=== PATIENT | female | born 1950 | race Caucasian/White ===

== ENCOUNTER 2019-01-19 22:47 | Inpatient (IN) | payer MEDICARE ==
[2019-01-19] MEDS ORDERED: Magnesium 2 GM/50 ML BAG (IN WATER) ONE (23:41)
[2019-01-20] MEDS ORDERED: Ondansetron PF 4 MG/2 ML Vial IVP PRN (01:26)
[2019-01-20] MEDS ORDERED: Ondansetron ODT 4 MG TAB PO PRN (01:26)
--- NOTE | 2019-01-20 01:49 | HP ---
PRIMARY CARE PHYSICIAN: None. The patient recently relocated to [place], [place]. CHIEF COMPLAINT: Shortness of breath and wheezing of 1-week duration. HISTORY OF PRESENT ILLNESS: The patient is a 68-year-old female with COPD, presented to the emergency room with above complaints. Over the last 1 week, the patient developed gradual worsening shortness of breath along with significant wheezing. She also had cough that was productive of thick whitish phlegm. She was short of breath on minimal exertion. She tried using Symbicort and albuterol inhaler with minimal relief. She denies any chest pain, palpitations, lightheadedness, dizziness, or syncope. Her O2 saturation at home was 80% on room air. The patient has home oxygen from her previous primary care physician, however, she does not use it. In the emergency room, initial vital signs showed temperature 98.9, respiration of 32, pulse rate of 105, blood pressure of 106/83, with O2 saturation of 81% on room air. She was started on O2 supplementation. She received azithromycin, Rocephin, DuoNeb, and IV steroids in the emergency room. Chest x-ray showed left lower lobe infiltrate. PAST MEDICAL HISTORY: 1. COPD. 2. Schizophrenia. 3. Anxiety and depression. 4. Morbid obesity. 5. Hypothyroidism and chronic insomnia. PAST SURGICAL HISTORY: 1. Left axillary staphylococcal abscess, status post excision by Dr. Morirson. 2. Cholecystectomy. 3. Left breast biopsy. 4. section x2. 5. Hysterectomy. 6. Cystoscopy. ALLERGIES: NO KNOWN DRUG ALLERGIES. CURRENT HOME MEDICATIONS: The patient does not have accurate list of medications. She is able to name some of them, which includes 1. Abilify. 2. Cymbalta. 3. Levothyroxine. 4. Metoprolol. 5. BuSpar. 6. Trazodone. SOCIAL HISTORY: The patient smokes up to half pack a day for last 30 years. She denies any drug use. Drinks alcohol socially. She makes her own decision with the help of her family. She is full code. FAMILY HISTORY: Negative for premature coronary artery disease. REVIEW OF SYSTEMS: All other review of systems was reviewed and were found negative. PHYSICAL EXAMINATION: VITAL SIGNS: As discussed above. She is currently on 3 L nasal cannula. GENERAL: A 68-year-old female, in mild respiratory distress at rest. HEENT: Head, atraumatic and normocephalic. Sclerae anicteric. Moist mucous membranes. No oral lesion. NECK: Supple. No JVD appreciated. No carotid bruit. LUNGS: Showed accessory muscle use. There is diffuse wheezing bilaterally. There was scattered rhonchi. There were rales at the left base. HEART: S1 and S2 present. Regular rate and rhythm. No rubs or gallops appreciated. No significant murmurs. ABDOMEN: Soft. Bowel sounds present. There is some erythema around the umbilicus without significant drainage. No rebound or guarding. EXTREMITIES: No edema or calf tenderness. NEUROLOGIC: Grossly nonfocal. Moves all 4 extremities. Power was 5/5 in all extremities. PSYCHIATRIC: Alert, awake, and oriented x3. Normal affect. SKIN: Warm and dry. LYMPH NODES: No palpable lymph nodes in the neck. PERIPHERAL VASCULAR: Radial pulses palpable bilaterally. MUSCULOSKELETAL: No joint swelling tenderness. LABORATORY FINDINGS: CBC showed WBC 5.5, hemoglobin 15.7, hematocrit 51.4, and platelet count of 167. Chemistry showed sodium 146, potassium 3.5, chloride 105, bicarb 31, BUN 14, and creatinine 0.81. Lactic acid 0.9. LFTs in normal range. BNP 32.8. Troponin negative. IMAGING STUDIES: Chest x-ray by my review showed possible left lower lobe infiltrate. Telemetry monitoring by my review showed sinus rhythm. EKG by my review showed sinus rhythm. IMPRESSION: 1. Acute hypoxic respiratory failure secondary to chronic obstructive pulmonary disease exacerbation with left lower lobe pneumonia, suspected pneumococcal. 2. History of chronic respiratory failure, on home oxygen. However, the patient has not been using her oxygen. 3. Hypothyroidism. 4. Morbid obesity. 5. Anxiety. 6. Depression, mild, stable. 7. Schizophrenia. 8. Ongoing tobacco abuse. PLAN: The patient will be monitored on the medical floor. She will require 2 to 3 days for stabilization. We will continue IV steroids with antibiotics and nebulizer treatment. We will consult Dr. Ornelas in a.m. Continuous pulse oximetry. Continue Symbicort. We will confirm home medications. The patient was extensively counseled to quit smoking. Nebulizer treatment every 4 hours. Resume levothyroxine. Plan of care was discussed with the patient in detail. She stated understanding. Job ID: [id number]
[2019-01-20 02:14] VITALS: BMI 45.3
[2019-01-20] MEDS: methylPREDNISolone Sod Succ 40 MG VIAL IVP SCH ×4 (02:42→19:34)
[2019-01-20] MEDS: Levothyroxine Sodium 100 MCG TAB PO SCH (05:35)
[2019-01-20 07:19] LABS: #Lymphocytes 0.7 thou/uL (1.20-3.40); #Monocytes 0.1 thou/uL (0.11-0.59); #Neutrophils 4.9 thou/uL (1.40-6.50); %Eosinophils 0.4 % (0.0-10.0); %Lymphocytes 11.9 % (21.0-51.0); %Monocytes 0.9 % (0.0-10.0); %Neutrophils 86.9 % (42.0-75.0); Hemoglobin 14.6 g/dL (12.0-16.0); Mean Corpuscular HGB CONC 31.3 g/dL (32.0-36.0); Mean Corpuscular Hemoglobin 31.1 pg (27.0-31.0); Mean Corpuscular Volume 99.2 fL (78.0-98.0); Mean Platelet Volume 7.5 fL (7.4-10.4); Platelet Count 148 thou/uL (130-400); Red Blood Cell (RBC) Count 4.71 mill/uL (4.20-5.40); White Blood Cell (WBC) Count 5.6 thou/uL (4.8-10.8)
[2019-01-20] MEDS: Mometasone/Formoterol 120 PUFF INHALER INH SCH ×2 (07:30→19:20)
[2019-01-20 07:40] LABS: Anion Gap 13 mmol/L (10-20); BUN (Urea Nitrogen) 11 mg/dL (9.8-20.1); Calc. Creatinine Clearance 130 mL/min (70-130); Calcium 8.9 mg/dL (7.8-10.44); Carbon Dioxide 27 mmol/L (23-31); Chloride 105 mmol/L (98-107); Estimated GFR-MDRD 81; Glucose 177 mg/dL (80-115); Potassium 3.8 mmol/L (3.5-5.1); Sodium 141 mmol/L (136-145)
[2019-01-20] MEDS: Famotidine 20 MG TAB PO SCH ×2 (08:02→19:34)
[2019-01-20] MEDS: Saccharomyces boulardii 250 MG CAP PO SCH (08:02)
[2019-01-20] MEDS: cefTRIAXone\\ROCEPHIN 1 GM in Sodium Chloride 0.9% 100 ML IVPB SCH (08:02)
[2019-01-20] MEDS: Azithromycin 500 MG in Sodium Chloride 0.9% 250 ML 250 ML IVPB SCH (08:03)
[2019-01-20] MEDS: Enoxaparin Sodium 40 MG/0.4 ML SYRINGE SC SCH (08:03)
[2019-01-20] MEDS ORDERED: Prevnar 13-Val Conj/PF 0.5 ML SYRINGE IM ONE (09:00)
[2019-01-20] MEDS ORDERED: Nicotine 21 MG PATCH TD SCH (12:00)
[2019-01-20] MEDS: Acetaminophen 325 MG TAB PO PRN ×2 (12:13→18:18)
--- NOTE | 2019-01-20 16:07 | CON ---
DATE OF CONSULTATION: CONSULT PHYSICIAN: Hospitalist Team. REASON FOR CONSULTATION: COPD exacerbation. HISTORY OF PRESENT ILLNESS: Ms. Littlejohn is a 68-year-old female with rather severe COPD by history. She came in with 1-week history of increasing shortness of breath and wheezing. She was found to be severely hypoxemic at home yesterday and a friend insisted that she go to the ER. She smokes at least a pack per day. She has been prescribed home oxygen in the past, but does not wear it. She also does not take any of her pulmonary medications at home. PAST MEDICAL HISTORY: 1. Severe chronic obstructive pulmonary disease. 2. Schizophrenia. 3. Anxiety. 4. Depression. 5. Obesity. 6. Insomnia. 7. Hypothyroidism. PAST SURGICAL HISTORY: 1. Left axillary Staphylococcal abscess excision. 2. Cholecystectomy. 3. Breast biopsy. 4. section x2. 5. Hysterectomy. 6. Cystoscopy. ALLERGIES: NONE. MEDICATIONS: Prior to admission; 1. Abilify. 2. Cymbalta. 3. Levothyroxine. 4. Metoprolol. 5. BuSpar. 6. Trazodone. 7. She also has some albuterol at home. SOCIAL HISTORY: Smokes one pack per day, has done so for at least 30 years. Does not use any illicit drugs. She is not limited by activities of daily living at home. FAMILY MEDICAL HISTORY: Unremarkable for lung disease. REVIEW OF SYSTEMS: A 12-point review of systems is otherwise negative. PHYSICAL EXAMINATION: VITAL SIGNS: Temperature 98.0, pulse 89, respirations 18, O2 saturation 95% on 3 L, and blood pressure 103/59. The patient is 5 foot 1 inch and weighs 240 pounds. GENERAL: She appears to be in no distress. HEENT: Pupils react. Sclerae anicteric. Oropharynx clear. NECK: No adenopathy or JVD. LUNGS: She has diffuse mild wheezing bilaterally. CARDIAC: S1 and S2. Regular without murmur. ABDOMEN: Soft, nontender, and nondistended. EXTREMITIES: No clubbing, cyanosis, or edema. CARDIAC: S1 and S2. Regular. NEUROLOGIC: Grossly intact throughout. LABORATORY DATA: White blood cell count 5.6, hematocrit 46.7, and platelet count 148. Sodium 141, potassium 3.8, chloride 105, CO2 of 27, BUN 11, creatinine 0.7, and glucose 177. Her x-ray shows a left-sided retrocardiac infiltrate. ASSESSMENT: 1. Chronic obstructive pulmonary disease with exacerbation. 2. Left lower lobe pneumonia. 3. Tobacco abuse. 4. Noncompliance. 5. Morbid obesity. PLAN: I reviewed the orders. Agree with the IV methylprednisolone, the ceftriaxone, and a Zithromax, and schedule nebulization treatments. The patient has been told not to smoke, but I doubt she will comply. I will set her up for a nicotine patch. The above encompassed 70 minutes time, of that time, greater than 50% was spent with the patient and/or the patient's unit in the hospital. Job ID: [id number]
[2019-01-21] MEDS: methylPREDNISolone Sod Succ 40 MG VIAL IVP SCH ×4 (02:05→20:20)
[2019-01-21] MEDS: Levothyroxine Sodium 100 MCG TAB PO SCH (06:10)
[2019-01-21 06:35] LABS: #Eosinphils 0.1 thou/uL (0.0-0.7); #Lymphocytes 0.6 thou/uL (1.20-3.40); #Monocytes 0.2 thou/uL (0.11-0.59); #Neutrophils 8.7 thou/uL (1.40-6.50); %Eosinophils 0.7 % (0.0-10.0); %Lymphocytes 6.4 % (21.0-51.0); %Monocytes 1.7 % (0.0-10.0); %Neutrophils 91.2 % (42.0-75.0); Hemoglobin 14.3 g/dL (12.0-16.0); Mean Corpuscular HGB CONC 31.8 g/dL (32.0-36.0); Mean Corpuscular Hemoglobin 31.8 pg (27.0-31.0); Mean Platelet Volume 8.3 fL (7.4-10.4); Platelet Count 154 thou/uL (130-400); RBC Distribution Width 14.4 % (11.5-14.5); White Blood Cell (WBC) Count 9.6 thou/uL (4.8-10.8)
[2019-01-21] MEDS: Mometasone/Formoterol 120 PUFF INHALER INH SCH ×2 (06:45→18:40)
[2019-01-21 06:54] LABS: Anion Gap 14 mmol/L (10-20); BUN (Urea Nitrogen) 14 mg/dL (9.8-20.1); Calc. Creatinine Clearance 136 mL/min (70-130); Calcium 9.5 mg/dL (7.8-10.44); Carbon Dioxide 31 mmol/L (23-31); Chloride 104 mmol/L (98-107); Estimated GFR-MDRD 85; Glucose 162 mg/dL (80-115); Potassium 4.1 mmol/L (3.5-5.1); Sodium 145 mmol/L (136-145)
[2019-01-21] MEDS: Saccharomyces boulardii 250 MG CAP PO SCH (07:55)
[2019-01-21] MEDS: cefTRIAXone\\ROCEPHIN 1 GM in Sodium Chloride 0.9% 100 ML IVPB SCH (07:55)
[2019-01-21] MEDS: Enoxaparin Sodium 40 MG/0.4 ML SYRINGE SC SCH (07:55)
[2019-01-21] MEDS: Famotidine 20 MG TAB PO SCH ×2 (07:55→20:20)
[2019-01-21] MEDS: Acetaminophen 325 MG TAB PO PRN (07:56)
[2019-01-21] MEDS: Nicotine 21 MG PATCH TD SCH (07:56)
--- NOTE | 2019-01-21 09:18 | PRG ---
DATE OF SERVICE: 01/21/2019 SUBJECTIVE: The patient is about the same. She had no acute complaints, except she wants her antidepressants restarted. OBJECTIVE: VITAL SIGNS: Temperature 98.4, pulse 100, respirations 20, saturations 91% on 3 L, blood pressure 134/85. HEENT: Unremarkable. NECK: No adenopathy or JVD. LUNGS: Diffuse mild wheezing. CARDIAC: S1 and S2. Regular. ABDOMEN: Soft. EXTREMITIES: No edema. LABORATORY DATA: White blood cell count 9.6, hematocrit 45.1, and platelet count 154. Sodium 145, potassium 4.1, chloride 104, CO2 of 31, BUN 14, creatinine 0.7, glucose 162. ASSESSMENT: Chronic obstructive pulmonary disease with exacerbation. PLAN: Continue antibiotics, breathing treatments, and steroids. I think it will take several more days for her to improve. Job ID: [id number]
--- NOTE | 2019-01-21 12:44 | PDOC.PN ---
- Subjective Encounter Start Date: 01/21/19 Encounter Start Time: 07:40 Pt seen for followup re: acute hypoxic respiratory failure. Feels slightly better. - Objective Resuscitation Status - Order Detail: 01/20/19 01:26 Resuscitation Status Routine Resuscitation Status: FULL: Full Resuscitation MAR Reviewed: Yes Vital Signs & Weight: Vital Signs (12 hours) Temp Pulse Resp BP Pulse Ox 01/21/19 10:01 85 20 01/21/19 08:01 98.4 F 100 20 134/85 91 L 01/21/19 06:43 88 20 94 L 01/21/19 02:33 91 16 94 L Weight Weight 240 lb I&O: 01/20/19 01/21/19 01/22/19 06:59 06:59 06:59 Intake Total 2330 Balance 2330 Result Diagrams: 01/21/19 06:08 01/21/19 06:08 Additional Labs: Labs reviewed by me Phys Exam - Physical Examination Morbid obesity HEENT: moist MMs, sclera anicteric, oral pharynx no lesions, 2+ tonsils Neck: no nodes, no JVD, supple, full ROM Respiratory: wheezing present Cardiovascular: RRR, no rub S1, S2 Neurological: moves all 4 limbs Psychiatric: normal affect Dx/Plan (1) Acute on chronic respiratory failure with hypoxia Code(s): J96.21 - ACUTE AND CHRONIC RESPIRATORY FAILURE WITH HYPOXIA Status: Acute Comment: Improving with oxygen, steroids and bronchodilators (2) COPD exacerbation Code(s): J44.1 - CHRONIC OBSTRUCTIVE PULMONARY DISEASE W (ACUTE) EXACERBATION Status: Acute Comment: Improving, continue steroids, oxygen and bronchodilators (3) Pneumonia Code(s): J18.9 - PNEUMONIA, UNSPECIFIED ORGANISM Status: Acute Comment: continue ceftriaxone and azithromycin (4) Depression Code(s): F32.9 - MAJOR DEPRESSIVE DISORDER, SINGLE EPISODE, UNSPECIFIED Status : Chronic Comment: moderate, stable - Plan * . Review of Systems - Review of Systems Constitutional: negative: fever, chills, sweats, weakness, malaise Respiratory: Cough, Dry, Wheezing. negative: Shortness of Breath, Hemoptysis, SOB with Excertion, Pleuritic Pain, Sputum Cardiovascular: negative: chest pain, palpitations, orthopnea, paroxysmal nocturnal dyspnea, edema, light headedness Gastrointestinal: negative: Nausea, Vomiting, Abdominal Pain, Diarrhea, Constipation, Melena, Hematochezia Genitourinary: negative: Dysuria, Frequency, Incontinence, Hematuria, Retention - Medications/Allergies Allergies/Adverse Reactions: Allergies Allergy/AdvReac Type Severity Reaction Status Date / Time aspirin Allergy Verified 01/20/19 08:02 Medications: Current Medications Acetaminophen (Tylenol) 650 mg PO Q4H PRN PRN Reason: Headache/Fever/Mild Pain (1-3) Last Admin: 01/21/19 07:56 Dose: 650 mg Albuterol/Ipratropium (Duoneb) 3 ml NEB [id number] [facility] Last Admin: 01/21/19 10:01 Dose: 3 ml Albuterol/Ipratropium (Duoneb) 3 ml NEB [id number] PRN PRN Reason: SOB &/or Wheezing Buspirone HCl (Buspar) 15 mg PO BID [facility] Duloxetine HCl (Cymbalta) 100 mg PO QPM [facility] Enoxaparin Sodium (Lovenox) 40 mg SC 0900 [facility] Last Admin: 01/21/19 07:55 Dose: 40 mg Famotidine (Pepcid) 20 mg PO BID [facility] Last Admin: 01/21/19 07:55 Dose: 20 mg Azithromycin 500 mg/ Sodium (Chloride) 250 mls @ 250 mls/hr IVPB DAILY [facility] Last Admin: 01/20/19 08:03 Dose: 250 mls Ceftriaxone Sodium 1 gm/ (Sodium Chloride) 100 mls @ 200 mls/hr IVPB 0800 [facility] Last Admin: 01/21/19 07:55 Dose: 100 mls Levothyroxine Sodium (Synthroid) 100 mcg PO 0600 [facility] Last Admin: 01/21/19 06:10 Dose: 100 mcg Methylprednisolone Sodium Succinate (Solu-Medrol) 40 mg IVP 0200,0800,1400, 2000 [facility] Last Admin: 01/21/19 08:02 Dose: 40 mg Mometasone Furoate/Formoterol Fumar (Dulera 200 Mcg/5 Mcg Inhaler) 2 puff INH BID-RT [facility] Last Admin: 01/21/19 06:45 Dose: 2 puff Montelukast Sodium (Singulair) 10 mg PO DAILY [facility] Nicotine (Nicoderm Patch) 21 mg TD DAILY [facility] Last Admin: 01/21/19 07:56 Dose: 21 mg Non-Formulary Medication (Aripiprazole [Aripiprazole]) 20 mg PO DAILY [facility] Ondansetron HCl (Zofran Odt) 4 mg PO Q6H PRN PRN Reason: Nausea/Vomiting Ondansetron HCl (Zofran) 4 mg IVP Q6H PRN PRN Reason: Nausea/Vomiting Ropinirole HCl (Requip) 0.25 mg PO TID [facility] Saccharomyces Boulardii (Florastor) 250 mg PO DAILY [facility] Last Admin: 01/21/19 07:55 Dose: 250 mg Sodium Chloride (Flush - Normal Saline) 10 ml IVF PRN PRN PRN Reason: Saline Flush Trazodone HCl (Desyrel) 100 mg PO QPM [facility]
[2019-01-21] MEDS: Azithromycin 500 MG in Sodium Chloride 0.9% 250 ML 250 ML IVPB SCH (13:24)
[2019-01-21] MEDS: traMADol HCl 50 MG TAB PO PRN ×2 (14:43→20:18)
[2019-01-21] MEDS: Benzonatate 100 MG CAP PO SCH ×2 (14:44→20:20)
[2019-01-21] MEDS: rOPINIRole HCl 0.25 MG TAB PO SCH ×2 (14:44→20:20)
[2019-01-21] MEDS: busPIRone HCl 10 MG TAB PO SCH (20:20)
[2019-01-21] MEDS: traZODone HCl 50 MG TAB PO SCH (20:21)
[2019-01-22] MEDS: methylPREDNISolone Sod Succ 40 MG VIAL IVP SCH ×4 (01:23→20:47)
[2019-01-22] MEDS: Levothyroxine Sodium 100 MCG TAB PO SCH (04:51)
[2019-01-22] MEDS: Mometasone/Formoterol 120 PUFF INHALER INH SCH ×2 (06:44→18:26)
[2019-01-22] MEDS: Acetaminophen 325 MG TAB PO PRN ×2 (07:43→15:23)
[2019-01-22] MEDS: rOPINIRole HCl 0.25 MG TAB PO SCH ×3 (07:44→20:47)
[2019-01-22] MEDS: busPIRone HCl 10 MG TAB PO SCH ×2 (07:44→20:47)
[2019-01-22] MEDS: Montelukast Sodium 10 mg Tablet PO SCH (07:44)
[2019-01-22] MEDS: Saccharomyces boulardii 250 MG CAP PO SCH (07:44)
[2019-01-22] MEDS: Azithromycin 250 MG TAB PO SCH (07:44)
[2019-01-22] MEDS: Benzonatate 100 MG CAP PO SCH ×3 (07:44→20:47)
[2019-01-22] MEDS: Aripiprazole 10 MG TAB PO SCH (07:44)
[2019-01-22] MEDS: cefTRIAXone\\ROCEPHIN 1 GM in Sodium Chloride 0.9% 100 ML IVPB SCH (07:45)
[2019-01-22] MEDS: Enoxaparin Sodium 40 MG/0.4 ML SYRINGE SC SCH (07:45)
[2019-01-22] MEDS: Famotidine 20 MG TAB PO SCH ×2 (07:45→20:47)
[2019-01-22] MEDS: Nicotine 21 MG PATCH TD SCH (07:45)
--- NOTE | 2019-01-22 09:40 | PRG ---
DATE OF SERVICE: 01/22/2019 SUBJECTIVE: She feels a little better, but not completely over her COPD exacerbation. OBJECTIVE: VITAL SIGNS: Temperature 98.3, pulse 98, respirations 20, O2 sat 96%, and blood pressure 127/84. HEAD AND NECK: Exams are unremarkable. LUNGS: Diffuse mild bilateral wheezing. CARDIAC: S1 and S2. Regular. ABDOMEN: Soft. EXTREMITIES: Not edematous. LABORATORY DATA: No labs were done today. ASSESSMENT: Chronic obstructive pulmonary disease with exacerbation. PLAN: Continue with the antibiotics, IV steroids, and aggressive nebulization treatments. I have instructed her to get up out of bed and walk around. Job ID: [id number]
--- NOTE | 2019-01-22 17:17 | PDOC.PN ---
- Subjective Encounter Start Date: 01/22/19 Encounter Start Time: 09:00 Pt seen for followup re: acute on chronic hypoxic respiratory failure. Feels slightly better. - Objective Resuscitation Status - Order Detail: 01/20/19 01:26 Resuscitation Status Routine Resuscitation Status: FULL: Full Resuscitation Vital Signs & Weight: Vital Signs (12 hours) Temp Pulse Resp BP BP Pulse Ox 01/22/19 12:14 98.3 F 89 22 H 125/78 93 L 01/22/19 10:28 98 16 94 L 01/22/19 08:00 96 01/22/19 07:56 98 20 127/84 96 01/22/19 07:43 98.3 F 87 16 116/73 96 01/22/19 06:43 88 16 97 Weight Weight 240 lb I&O: 01/21/19 01/22/19 01/23/19 06:59 06:59 06:59 Intake Total 2330 500 Balance 2330 500 Result Diagrams: 01/21/19 06:08 01/21/19 06:08 Phys Exam - Physical Examination Morbid obesity HEENT: moist MMs Neck: supple Respiratory: wheezing present Cardiovascular: RRR Gastrointestinal: soft Neurological: moves all 4 limbs Psychiatric: normal affect Dx/Plan (1) Acute on chronic respiratory failure with hypoxia Code(s): J96.21 - ACUTE AND CHRONIC RESPIRATORY FAILURE WITH HYPOXIA Status: Acute Comment: Secondary to COPD exacerbation, improving. (2) COPD exacerbation Code(s): J44.1 - CHRONIC OBSTRUCTIVE PULMONARY DISEASE W (ACUTE) EXACERBATION Status: Acute Comment: Slowly improving, will continue steroids, oxygen and bronchodilators (3) Pneumonia Code(s): J18.9 - PNEUMONIA, UNSPECIFIED ORGANISM Status: Acute Comment: on IV ceftriaxone and azithromycin (4) Depression Code(s): F32.9 - MAJOR DEPRESSIVE DISORDER, SINGLE EPISODE, UNSPECIFIED Status : Chronic Comment: moderate, stable - Plan * . Review of Systems - Review of Systems Respiratory: Cough, SOB with Excertion, Sputum. negative: Dry, Shortness of Breath, Hemoptysis, Pleuritic Pain, Wheezing Cardiovascular: negative: chest pain, palpitations, orthopnea, paroxysmal nocturnal dyspnea, edema, light headedness - Medications/Allergies Allergies/Adverse Reactions: Allergies Allergy/AdvReac Type Severity Reaction Status Date / Time aspirin Allergy Verified 01/20/19 08:02 Medications: Current Medications Acetaminophen (Tylenol) 650 mg PO Q4H PRN PRN Reason: Headache/Fever/Mild Pain (1-3) Last Admin: 01/22/19 15:23 Dose: 650 mg Albuterol/Ipratropium (Duoneb) 3 ml NEB [id number] [facility] Last Admin: 01/22/19 13:52 Dose: 3 ml Albuterol/Ipratropium (Duoneb) 3 ml NEB [id number] PRN PRN Reason: SOB &/or Wheezing Aripiprazole (Abilify) 20 mg PO DAILY [facility] Last Admin: 01/22/19 07:44 Dose: 20 mg Azithromycin (Zithromax) 500 mg PO DAILY [facility] Last Admin: 01/22/19 07:44 Dose: 500 mg Benzonatate (Tessalon) 100 mg PO TID [facility] Last Admin: 01/22/19 14:05 Dose: 100 mg Buspirone HCl (Buspar) 15 mg PO BID [facility] Last Admin: 01/22/19 07:44 Dose: 15 mg Duloxetine HCl (Cymbalta) 100 mg PO QPM [facility] Last Admin: 01/21/19 20:23 Dose: 100 mg Enoxaparin Sodium (Lovenox) 40 mg SC 0900 [facility] Last Admin: 01/22/19 07:45 Dose: 40 mg Famotidine (Pepcid) 20 mg PO BID [facility] Last Admin: 01/22/19 07:45 Dose: 20 mg Ceftriaxone Sodium 1 gm/ (Sodium Chloride) 100 mls @ 200 mls/hr IVPB 0800 [facility] Last Admin: 01/22/19 07:45 Dose: 100 mls Levothyroxine Sodium (Synthroid) 100 mcg PO 0600 [facility] Last Admin: 01/22/19 04:51 Dose: 100 mcg Methylprednisolone Sodium Succinate (Solu-Medrol) 40 mg IVP 0200,0800,1400, 2000 [facility] Last Admin: 01/22/19 14:05 Dose: 40 mg Mometasone Furoate/Formoterol Fumar (Dulera 200 Mcg/5 Mcg Inhaler) 2 puff INH BID-RT [facility] Last Admin: 01/22/19 06:44 Dose: 2 puff Montelukast Sodium (Singulair) 10 mg PO DAILY [facility] Last Admin: 01/22/19 07:44 Dose: 10 mg Nicotine (Nicoderm Patch) 21 mg TD DAILY [facility] Last Admin: 01/22/19 07:45 Dose: 21 mg Ondansetron HCl (Zofran Odt) 4 mg PO Q6H PRN PRN Reason: Nausea/Vomiting Ondansetron HCl (Zofran) 4 mg IVP Q6H PRN PRN Reason: Nausea/Vomiting Ropinirole HCl (Requip) 0.25 mg PO TID [facility] Last Admin: 01/22/19 14:05 Dose: 0.25 mg Saccharomyces Boulardii (Florastor) 250 mg PO DAILY [facility] Last Admin: 01/22/19 07:44 Dose: 250 mg Sodium Chloride (Flush - Normal Saline) 10 ml IVF PRN PRN PRN Reason: Saline Flush Tramadol HCl (Ultram) 50 mg PO Q6H PRN PRN Reason: Pain Last Admin: 01/21/19 20:18 Dose: 50 mg Trazodone HCl (Desyrel) 100 mg PO QPM [facility] Last Admin: 01/21/19 20:21 Dose: 100 mg
[2019-01-22] MEDS: traMADol HCl 50 MG TAB PO PRN (17:23)
[2019-01-22] MEDS: traZODone HCl 50 MG TAB PO SCH (20:49)
[2019-01-23] MEDS: traMADol HCl 50 MG TAB PO PRN ×2 (00:45→17:57)
[2019-01-23] MEDS: methylPREDNISolone Sod Succ 40 MG VIAL IVP SCH ×2 (02:19→19:03)
[2019-01-23] MEDS: Levothyroxine Sodium 100 MCG TAB PO SCH (06:01)
[2019-01-23] MEDS: Mometasone/Formoterol 120 PUFF INHALER INH SCH ×2 (07:49→18:25)
[2019-01-23] MEDS: Aripiprazole 10 MG TAB PO SCH (08:53)
[2019-01-23] MEDS: Saccharomyces boulardii 250 MG CAP PO SCH (08:53)
[2019-01-23] MEDS: Benzonatate 100 MG CAP PO SCH ×3 (08:53→20:14)
[2019-01-23] MEDS: rOPINIRole HCl 0.25 MG TAB PO SCH ×3 (08:53→20:14)
[2019-01-23] MEDS: busPIRone HCl 10 MG TAB PO SCH ×2 (08:53→20:15)
[2019-01-23] MEDS: Montelukast Sodium 10 mg Tablet PO SCH (08:53)
[2019-01-23] MEDS: Azithromycin 250 MG TAB PO SCH (08:53)
[2019-01-23] MEDS: Famotidine 20 MG TAB PO SCH ×2 (08:54→20:16)
[2019-01-23] MEDS: Nicotine 21 MG PATCH TD SCH (08:55)
[2019-01-23] MEDS: cefTRIAXone\\ROCEPHIN 1 GM in Sodium Chloride 0.9% 100 ML IVPB SCH (08:55)
[2019-01-23] MEDS: Enoxaparin Sodium 40 MG/0.4 ML SYRINGE SC SCH (08:55)
[2019-01-23] MEDS: predniSONE 20 MG TAB PO SCH (08:58)
--- NOTE | 2019-01-23 09:31 | PRG ---
DATE OF SERVICE: 01/23/2019 SUBJECTIVE: She is doing better, less wheezing. She has been walking around the hospital. OBJECTIVE: VITAL SIGNS: Temperature 97.8, pulse 80, respirations 20, and O2 saturation 95% on 3 L. HEENT: Unremarkable. NECK: No JVD. LUNGS: She has diffuse mild wheezing. CARDIAC: S1 and S2. Regular. ABDOMEN: Soft. EXTREMITIES: No edema. ASSESSMENT: 1. Chronic obstructive pulmonary disease with exacerbation. 2. Chronic hypoxemic respiratory failure. PLAN: Convert over to oral steroids. Consider discharge tomorrow, if she is doing well. Job ID: [id number]
--- NOTE | 2019-01-23 14:30 | PDOC.PN ---
- Subjective Encounter Start Date: 01/23/19 Encounter Start Time: 08:20 Pt seen for acute on chronic hypoxic respiratory failure. Feels better. - Objective Resuscitation Status - Order Detail: 01/20/19 01:26 Resuscitation Status Routine Resuscitation Status: FULL: Full Resuscitation MAR Reviewed: Yes Vital Signs & Weight: Vital Signs (12 hours) Temp Pulse Resp BP BP Pulse Ox 01/23/19 13:43 78 18 95 01/23/19 10:02 74 18 95 01/23/19 08:00 94 L 01/23/19 07:55 98.5 F 91 22 H 134/82 94 L 01/23/19 07:49 75 19 95 01/23/19 07:48 75 18 95 01/23/19 04:00 97.8 F 80 20 132/83 95 01/23/19 03:44 78 18 95 Weight Weight 240 lb I&O: 01/22/19 01/23/19 01/24/19 06:59 06:59 06:59 Intake Total 500 2200 Balance 500 2200 Result Diagrams: 01/21/19 06:08 01/21/19 06:08 Additional Labs: Labs reviewed by me Phys Exam - Physical Examination Morbid obesity HEENT: moist MMs Neck: supple Respiratory: wheezing present Cardiovascular: RRR Gastrointestinal: soft Neurological: moves all 4 limbs Psychiatric: normal affect Dx/Plan (1) Acute on chronic respiratory failure with hypoxia Code(s): J96.21 - ACUTE AND CHRONIC RESPIRATORY FAILURE WITH HYPOXIA Status: Acute Comment: improving. (2) COPD exacerbation Code(s): J44.1 - CHRONIC OBSTRUCTIVE PULMONARY DISEASE W (ACUTE) EXACERBATION Status: Acute Comment: continue steroids, oxygen and bronchodilators (3) Pneumonia Code(s): J18.9 - PNEUMONIA, UNSPECIFIED ORGANISM Status: Acute Comment: on IV ceftriaxone and azithromycin (4) Depression Code(s): F32.9 - MAJOR DEPRESSIVE DISORDER, SINGLE EPISODE, UNSPECIFIED Status : Chronic Comment: moderate, stable (5) Morbid obesity Code(s): E66.01 - MORBID (SEVERE) OBESITY DUE TO EXCESS CALORIES Status: Chronic Comment: stable - Plan continue antibiotics * . Review of Systems - Review of Systems Respiratory: SOB with Excertion, Wheezing. negative: Cough, Dry, Shortness of Breath, Hemoptysis, Pleuritic Pain, Sputum Cardiovascular: negative: chest pain, palpitations, orthopnea, paroxysmal nocturnal dyspnea, edema, light headedness - Medications/Allergies Allergies/Adverse Reactions: Allergies Allergy/AdvReac Type Severity Reaction Status Date / Time aspirin Allergy Verified 01/20/19 08:02 Medications: Current Medications Acetaminophen (Tylenol) 650 mg PO Q4H PRN PRN Reason: Headache/Fever/Mild Pain (1-3) Last Admin: 01/22/19 15:23 Dose: 650 mg Albuterol/Ipratropium (Duoneb) 3 ml NEB [id number] [facility] Last Admin: 01/23/19 13:43 Dose: 3 ml Albuterol/Ipratropium (Duoneb) 3 ml NEB [id number] PRN PRN Reason: SOB &/or Wheezing Aripiprazole (Abilify) 20 mg PO DAILY [facility] Last Admin: 01/23/19 08:53 Dose: 20 mg Azithromycin (Zithromax) 500 mg PO DAILY [facility] Last Admin: 01/23/19 08:53 Dose: 500 mg Benzonatate (Tessalon) 100 mg PO TID [facility] Last Admin: 01/23/19 14:03 Dose: 100 mg Buspirone HCl (Buspar) 15 mg PO BID [facility] Last Admin: 01/23/19 08:53 Dose: 15 mg Duloxetine HCl (Cymbalta) 100 mg PO QPM [facility] Last Admin: 01/22/19 20:50 Dose: 100 mg Enoxaparin Sodium (Lovenox) 40 mg SC 0900 [facility] Last Admin: 01/23/19 08:55 Dose: 40 mg Famotidine (Pepcid) 20 mg PO BID [facility] Last Admin: 01/23/19 08:54 Dose: 20 mg Ceftriaxone Sodium 1 gm/ (Sodium Chloride) 100 mls @ 200 mls/hr IVPB 0800 [facility] Last Admin: 01/23/19 08:55 Dose: 100 mls Levothyroxine Sodium (Synthroid) 100 mcg PO 0600 [facility] Last Admin: 01/23/19 06:01 Dose: 100 mcg Mometasone Furoate/Formoterol Fumar (Dulera 200 Mcg/5 Mcg Inhaler) 2 puff INH BID-RT [facility] Last Admin: 01/23/19 07:49 Dose: 2 puff Montelukast Sodium (Singulair) 10 mg PO DAILY [facility] Last Admin: 01/23/19 08:53 Dose: 10 mg Nicotine (Nicoderm Patch) 21 mg TD DAILY [facility] Last Admin: 01/23/19 08:55 Dose: 21 mg Ondansetron HCl (Zofran Odt) 4 mg PO Q6H PRN PRN Reason: Nausea/Vomiting Ondansetron HCl (Zofran) 4 mg IVP Q6H PRN PRN Reason: Nausea/Vomiting Prednisone (Prednisone) 40 mg PO DAILY [facility] Last Admin: 01/23/19 08:58 Dose: 40 mg Ropinirole HCl (Requip) 0.25 mg PO TID [facility] Last Admin: 01/23/19 14:03 Dose: 0.25 mg Saccharomyces Boulardii (Florastor) 250 mg PO DAILY [facility] Last Admin: 01/23/19 08:53 Dose: 250 mg Sodium Chloride (Flush - Normal Saline) 10 ml IVF PRN PRN PRN Reason: Saline Flush Tramadol HCl (Ultram) 50 mg PO Q6H PRN PRN Reason: Pain Last Admin: 01/23/19 00:45 Dose: 50 mg Trazodone HCl (Desyrel) 100 mg PO QPM [facility] Last Admin: 01/22/19 20:49 Dose: 100 mg
[2019-01-23] MEDS: traZODone HCl 50 MG TAB PO SCH (20:36)
[2019-01-24] MEDS: traMADol HCl 50 MG TAB PO PRN ×3 (05:23→20:36)
[2019-01-24] MEDS: Levothyroxine Sodium 100 MCG TAB PO SCH (05:23)
[2019-01-24] MEDS: Mometasone/Formoterol 120 PUFF INHALER INH SCH ×2 (05:45→20:31)
[2019-01-24] MEDS: cefTRIAXone\\ROCEPHIN 1 GM in Sodium Chloride 0.9% 100 ML IVPB SCH (08:20)
[2019-01-24] MEDS: Benzonatate 100 MG CAP PO SCH ×3 (08:21→20:34)
[2019-01-24] MEDS: busPIRone HCl 10 MG TAB PO SCH ×2 (08:21→20:41)
[2019-01-24] MEDS: rOPINIRole HCl 0.25 MG TAB PO SCH ×3 (08:21→20:34)
[2019-01-24] MEDS: Montelukast Sodium 10 mg Tablet PO SCH (08:21)
[2019-01-24] MEDS: Saccharomyces boulardii 250 MG CAP PO SCH (08:22)
[2019-01-24] MEDS: Famotidine 20 MG TAB PO SCH ×2 (08:22→20:34)
[2019-01-24] MEDS: Aripiprazole 10 MG TAB PO SCH (08:22)
[2019-01-24] MEDS: predniSONE 20 MG TAB PO SCH (08:22)
[2019-01-24] MEDS: Azithromycin 250 MG TAB PO SCH (08:22)
[2019-01-24] MEDS: Enoxaparin Sodium 40 MG/0.4 ML SYRINGE SC SCH (08:23)
[2019-01-24] MEDS: Nicotine 21 MG PATCH TD SCH (08:23)
--- NOTE | 2019-01-24 08:54 | PRG ---
DATE OF SERVICE: 01/24/2019 SUBJECTIVE: The patient is feeling a little better, but says she does not feel quite up to going home. OBJECTIVE: VITAL SIGNS: Temperature 97.9, pulse 78, blood pressure 95/68, O2 saturation 93%. HEENT: Unremarkable. NECK: No adenopathy or JVD. LUNGS: Diffuse small wheezing. CARDIAC: S1, S2. Regular. ABDOMEN: Soft. EXTREMITIES: No edema. LABORATORY DATA: No labs were done today. ASSESSMENT: Chronic obstructive pulmonary disease with exacerbation, slowly improving. PLAN: Switch her over to oral antibiotics. Increase activity as tolerated. Hopefully, home by tomorrow. Job ID: [id number]
[2019-01-24] MEDS: Cefdinir 300 MG CAP PO SCH (09:49)
--- NOTE | 2019-01-24 12:47 | PDOC.PN ---
- Subjective Encounter Start Date: 01/24/19 Encounter Start Time: 09:25 Subjective: breathing better, is at her home dose of nasal canula O2 -: is ambulating in room - Objective Resuscitation Status - Order Detail: 01/20/19 01:26 Resuscitation Status Routine Resuscitation Status: FULL: Full Resuscitation MAR Reviewed: Yes Vital Signs & Weight: Vital Signs (12 hours) Temp Pulse Resp BP Pulse Ox 01/24/19 11:47 97.6 F 81 20 101/60 93 L 01/24/19 09:41 82 20 96 01/24/19 08:00 96 01/24/19 07:29 97.9 F 78 22 H 95/68 93 L 01/24/19 05:45 80 18 96 01/24/19 05:43 80 18 96 01/24/19 04:00 97.6 F 80 18 112/75 93 L 01/24/19 01:54 70 18 97 Weight Weight 240 lb I&O: 01/23/19 01/24/19 01/25/19 06:59 06:59 06:59 Intake Total 2200 2200 240 Balance 2200 2200 240 Result Diagrams: 01/21/19 06:08 01/21/19 06:08 Phys Exam - Physical Examination HEENT: PERRLA, moist MMs Neck: no JVD, supple Respiratory: no wheezing, no rales rhonchi+ Cardiovascular: RRR, no significant murmur Gastrointestinal: soft, non-tender, positive bowel sounds Musculoskeletal: no edema, pulses present Neurological: non-focal, moves all 4 limbs Psychiatric: normal affect, A&O x 3 Dx/Plan (1) Acute on chronic respiratory failure with hypoxia Code(s): J96.21 - ACUTE AND CHRONIC RESPIRATORY FAILURE WITH HYPOXIA Status: Acute Comment: improving. (2) COPD exacerbation Code(s): J44.1 - CHRONIC OBSTRUCTIVE PULMONARY DISEASE W (ACUTE) EXACERBATION Status: Acute Comment: continue steroids, oxygen and bronchodilators (3) Depression Code(s): F32.9 - MAJOR DEPRESSIVE DISORDER, SINGLE EPISODE, UNSPECIFIED Status : Chronic Qualifiers: Depression Type: major depressive disorder (4) Morbid obesity Code(s): E66.01 - MORBID (SEVERE) OBESITY DUE TO EXCESS CALORIES Status: Chronic Comment: stable - Plan is on omnicef, steroids, nebs, dulera and singulair -: continue buspar, abilify, requip, trazadone -: has home oxygen per patient -: she has to come down or dc some of her psychotropic meds -: to ambulate in hallway, dc plan in am * . Review of Systems - Medications/Allergies Allergies/Adverse Reactions: Allergies Allergy/AdvReac Type Severity Reaction Status Date / Time aspirin Allergy Verified 01/20/19 08:02 Medications: Current Medications Acetaminophen (Tylenol) 650 mg PO Q4H PRN PRN Reason: Headache/Fever/Mild Pain (1-3) Last Admin: 01/22/19 15:23 Dose: 650 mg Albuterol/Ipratropium (Duoneb) 3 ml NEB [id number] [facility] Last Admin: 01/24/19 09:41 Dose: 3 ml Albuterol/Ipratropium (Duoneb) 3 ml NEB [id number] PRN PRN Reason: SOB &/or Wheezing Aripiprazole (Abilify) 20 mg PO DAILY [facility] Last Admin: 01/24/19 08:22 Dose: 20 mg Azithromycin (Zithromax) 500 mg PO DAILY [facility] Last Admin: 01/24/19 08:22 Dose: 500 mg Benzonatate (Tessalon) 100 mg PO TID [facility] Last Admin: 01/24/19 08:21 Dose: 100 mg Buspirone HCl (Buspar) 15 mg PO BID [facility] Last Admin: 01/24/19 08:21 Dose: 15 mg Cefdinir (Omnicef) 600 mg PO DAILY [facility] Last Admin: 01/24/19 09:49 Dose: 600 mg Duloxetine HCl (Cymbalta) 100 mg PO QPM [facility] Last Admin: 01/23/19 20:16 Dose: 100 mg Enoxaparin Sodium (Lovenox) 40 mg SC 0900 [facility] Last Admin: 01/24/19 08:23 Dose: 40 mg Famotidine (Pepcid) 20 mg PO BID [facility] Last Admin: 01/24/19 08:22 Dose: 20 mg Levothyroxine Sodium (Synthroid) 100 mcg PO 0600 [facility] Last Admin: 01/24/19 05:23 Dose: 100 mcg Mometasone Furoate/Formoterol Fumar (Dulera 200 Mcg/5 Mcg Inhaler) 2 puff INH BID-RT [facility] Last Admin: 01/24/19 05:45 Dose: 2 puff Montelukast Sodium (Singulair) 10 mg PO DAILY [facility] Last Admin: 01/24/19 08:21 Dose: 10 mg Nicotine (Nicoderm Patch) 21 mg TD DAILY [facility] Last Admin: 01/24/19 08:23 Dose: 21 mg Ondansetron HCl (Zofran Odt) 4 mg PO Q6H PRN PRN Reason: Nausea/Vomiting Ondansetron HCl (Zofran) 4 mg IVP Q6H PRN PRN Reason: Nausea/Vomiting Prednisone (Prednisone) 40 mg PO DAILY [facility] Last Admin: 01/24/19 08:22 Dose: 40 mg Ropinirole HCl (Requip) 0.25 mg PO TID [facility] Last Admin: 01/24/19 08:21 Dose: 0.25 mg Saccharomyces Boulardii (Florastor) 250 mg PO DAILY [facility] Last Admin: 01/24/19 08:22 Dose: 250 mg Sodium Chloride (Flush - Normal Saline) 10 ml IVF PRN PRN PRN Reason: Saline Flush Tramadol HCl (Ultram) 50 mg PO Q6H PRN PRN Reason: Pain Last Admin: 01/24/19 05:23 Dose: 50 mg Trazodone HCl (Desyrel) 100 mg PO QPM [facility] Last Admin: 01/23/19 20:36 Dose: 100 mg
[2019-01-24] MEDS: Acetaminophen 325 MG TAB PO PRN (17:51)
[2019-01-24] MEDS: traZODone HCl 50 MG TAB PO SCH (21:30)
[2019-01-25] MEDS: Levothyroxine Sodium 100 MCG TAB PO SCH (06:24)
[2019-01-25] MEDS: Mometasone/Formoterol 120 PUFF INHALER INH SCH (07:10)
[2019-01-25] MEDS: Aripiprazole 10 MG TAB PO SCH (08:22)
[2019-01-25] MEDS: Famotidine 20 MG TAB PO SCH (08:23)
[2019-01-25] MEDS: Benzonatate 100 MG CAP PO SCH (08:23)
[2019-01-25] MEDS: busPIRone HCl 10 MG TAB PO SCH (08:23)
[2019-01-25] MEDS: rOPINIRole HCl 0.25 MG TAB PO SCH (08:23)
[2019-01-25] MEDS: Nicotine 21 MG PATCH TD SCH (08:23)
[2019-01-25] MEDS: Montelukast Sodium 10 mg Tablet PO SCH (08:23)
[2019-01-25] MEDS: predniSONE 20 MG TAB PO SCH (08:23)
[2019-01-25] MEDS: Cefdinir 300 MG CAP PO SCH (08:23)
[2019-01-25] MEDS: Saccharomyces boulardii 250 MG CAP PO SCH (08:24)
[2019-01-25] MEDS: Enoxaparin Sodium 40 MG/0.4 ML SYRINGE SC SCH (08:24)
--- NOTE | 2019-01-25 08:55 | PRG ---
DATE OF SERVICE: 01/25/2019 SUBJECTIVE: The patient is doing well, wants to go home. OBJECTIVE: VITAL SIGNS: Temperature is 98.1, pulse 83, respirations 18, O2 saturation 92%, and blood pressure 106/71. HEENT: Unremarkable. NECK: No adenopathy or JVD. LUNGS: Clear. CARDIAC: S1 and S2, regular. ABDOMEN: Soft. EXTREMITIES: No edema. ASSESSMENT: Chronic obstructive pulmonary disease exacerbation. PLAN: The patient is clear to go home. I would finish out a total of 1 week of antibiotics and taper her prednisone over about 2 weeks. She can come and see me in the office in 3 to 4 weeks. As far as medications, I would leave her on the Dulera 2 puffs twice a day and DuoNeb every 4 to 6 hours. Job ID: [id number]
[2019-01-25 11:28] VITALS: BP 113/56; TEMP 98
--- NOTE | 2019-01-26 16:03 | DIS ---
DATE OF ADMISSION: 01/20/2019 DATE OF DISCHARGE: 01/25/2019 DISCHARGE DISPOSITION: To home. PRIMARY DISCHARGE DIAGNOSES: Acute on chronic respiratory failure with hypoxia, chronic obstructive pulmonary disease exacerbation. SECONDARY DISCHARGE DIAGNOSES: Morbid obesity, depression. PROCEDURES DONE DURING HOSPITALIZATION: Blood cultures x2, no growth. H and H 14 and 45, platelet count 154, white count of 9.6, MCV is 100, BUN 14, creatinine 0.6. One set of troponin was negative. BNP 32. Chest x-ray done on the day of admission showed possible left lower lobe infiltrate in the retrocardiac area. DISCHARGE MEDICATIONS: 1. Omnicef 600 mg p.o. daily for another 6 days. 2. Aripiprazole 20 mg p.o. daily. 3. BuSpar 15 mg twice daily. 4. Duloxetine 100 mg p.o. q.p.m. 5. Singulair 10 mg p.o. daily. 6. Albuterol inhaler and nebulizer p.r.n. 7. Requip 0.25 mg p.o. three times daily. 8. Trazodone 100 mg p.o. q.p.m. 9. Dulera inhaler 200/5 mcg two puffs twice daily. 10. Nicoderm transdermal patch 21 mg daily for 2 weeks and to discontinue after that. 11. Prednisone tapering dose per Dr. Ornelas's advice. 12. Florastor 250 mg p.o. daily for 10 days. ALLERGIES: TO ASPIRIN. INPATIENT CONSULT: Dr. Ornelas for Pulmonology. DISCHARGE PLAN: The patient to follow up with Dr. Ornelas in 2 to 3 weeks and primary care physician in 1 week. BRIEF COURSE DURING HOSPITALIZATION: The patient initially got admitted on the with complaints of shortness of breath and wheezing for one week prior to arrival. She was essentially admitted for acute on chronic COPD exacerbation with acute on chronic respiratory failure with hypoxia. The patient is on home oxygen at 3 L. She was 81% on room air in the ER. The patient was placed on broad-spectrum antibiotics along with steroids and nebulization. She has had consultation with Dr. Ornelas for Pulmonology. The patient has slowly but steadily responded to above measures. Her medications have been optimized. She needs to follow up with Dr. Ornelas in 3 to 4 weeks and primary care physician in 1 week. She has been counseled regarding tobacco usage. She is given a prescription for nicotine patch. Prior to discharge, she is ambulating and eating well. Please note, I have seen and examined the patient on the day of discharge. Job ID: [id number]
== END 2019-01-25 11:49 | disposition home or self-care (01) | DRG 193 ==
LOC: ERS 22:47 → T4-A 01-20 01:32
PROVIDERS: ADMIT Internal Medicine; ATTEND Internal Medicine
DX: J18.1 Lobar pneumonia, unspecified organism (principal); J96.21 Acute and chronic respiratory failure with hypoxia; J44.0 Chronic obstructive pulmonary disease with (acute) lower respiratory infection; J44.1 Chronic obstructive pulmonary disease with (acute) exacerbation; Z68.42 Body mass index [BMI] 45.0-49.9, adult; F20.9 Schizophrenia, unspecified; F41.9 Anxiety disorder, unspecified; F17.210 Nicotine dependence, cigarettes, uncomplicated; F31.9 Bipolar disorder, unspecified; E66.01 Morbid (severe) obesity due to excess calories; E03.9 Hypothyroidism, unspecified; G47.00 Insomnia, unspecified; Z90.710 Acquired absence of both cervix and uterus; Z79.899 Other long term (current) drug therapy; Z99.81 Dependence on supplemental oxygen; Z88.8 Allergy status to other drugs, medicaments and biological substances; Z91.19 Patient's noncompliance with other medical treatment and regimen
CPT/HCPCS: 36415; 80048; 85025; 94640; 94664; 94760; 96361; 96365; 99406; J0456; J0696; J1650; J2920; J3475; J3490; J7050; J7512; J7620

== ENCOUNTER 2019-05-09 07:38 | Outpatient (CLI) | payer MEDICARE ==
--- NOTE | 2019-05-09 09:16 | MMO ---
Bilateral MAMMO Bilat Diag DDI+ALEKSANDR. CLINICAL HISTORY: Patient is 68 years old and is seen for diagnostic exam and lump or thickening in the lower-outer region of the left breast. The patient has no family history of breast cancer. The patient has no personal history of cancer. The patient has a history of right Excisional Biopsy in YEARS AGO - benign. VIEWS: The views performed were: bilateral craniocaudal; bilateral mediolateral oblique with tomosynthesis; bilateral craniocaudal with tomosynthesis; bilateral mediolateral with tomosynthesis; left mediolateral oblique spot compression; and left craniocaudal spot compression. FILMS COMPARED: The present examination has been compared to prior imaging studies performed at [facility] on 05/09/2019, and at [facility] on 08/31/2018. MAMMOGRAM FINDINGS: The breasts are heterogeneously dense, which could obscure a lesion on mammography. There is a mass measuring 9 millimeters seen in the outer region of the left breast. There is subtle curvilinear calcification that may relate to a post-traumatic cyst. Targeted ultrasound reveals several small complex cysts that favor a benign process, in light of multiplicity and history of recent trauma to this region of the breast. In the right breast, there are no suspicious masses, calcifications or areas of architectural distortion. IMPRESSION: MASS IN THE LEFT BREAST IS PROBABLY BENIGN. FOLLOW-UP IN 3 MONTHS IS RECOMMENDED. 3 MONTH FOLLOW UP ULTRASOUND IS RECOMMENDED TO ENSURE STABILITY. THE RESULTS OF THIS EXAM WERE SENT TO THE PATIENT. ACR BI-RADS Category 3 - Probably benign finding - short interval follow-up suggested. [facility] will notify the patient of the need for additional imaging services. MAMMOGRAPHY NOTE: 1. A negative mammogram report should not delay a biopsy if a dominant of clinically suspicious mass is present. 2. Approximately 10% to 15% of breast cancers are not detected by mammography. 3. Adenosis and dense breasts may obscure an underlying neoplasm. Reported by: IGGY RODAS MD Electonically Signed: [id number]
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
== END 2019-05-09 07:39 | disposition home or self-care (01) ==
LOC: BICMAMMO 07:38
PROVIDERS: ATTEND Family Medicine
DX: N63.20 Unspecified lump in the left breast, unspecified quadrant (principal)
CPT/HCPCS: 76642; 77066; G0279

== ENCOUNTER 2019-06-27 11:35 | Day surgery (SDC) | payer MEDICARE ==
[2019-06-26 12:51] VITALS: BMI 50.5
[2019-06-27] MEDS ORDERED: Indomethacin 50 MG SUPP ONE (12:09)
[2019-06-27] MEDS ORDERED: Iothalamate Meglumine 60% 50 ML VIAL FS ONE (12:09)
[2019-06-27] MEDS ORDERED: Midazolam HCl 2 mg/2 ml Vial ONE (12:26)
--- NOTE | 2019-06-27 20:58 | OP ---
DATE OF PROCEDURE: 06/27/2019 TITLE OF PROCEDURE: Colonoscopy. PREPROCEDURE DIAGNOSES: 1. Positive fecal immunochemical test. 2. Last colonoscopy over 10 years ago. POSTPROCEDURE DIAGNOSES: 1. Exam to cecum; good bowel preparation. 2. No polyp, diverticulum, or active bleeding site identified. 3. Hypertrophied anal papilla. 4. Small internal hemorrhoids, not actively bleeding. 5. Otherwise, normal colonoscopy. PROCEDURE IN DETAIL: Written informed consent was obtained. The patient was brought to the endoscopy suite. Total intravenous anesthesia was administered by Dr. Ayala Mckeon and associates. The patient was placed in the left lateral decubitus position. A digital rectal exam was performed, which revealed a few small perianal tags. A Pentax video colonoscope was inserted through the anal canal and advanced under direct visualization to the cecum. Position in the cecum was verified by clear identification of the appendiceal orifice and the ileocecal valve. The quality of the bowel preparation was good. Each colon segment was examined carefully as the colonoscope was slowly withdrawn from the cecum. Haustral folds and vascular pattern appeared grossly normal. One isolated diverticulum was noted in the transverse colon. No polyp, mass, or active bleeding site was identified. In the rectum, a retroflexed view demonstrated small internal hemorrhoids that were not bleeding and a few hypertrophied anal papilla. The colon was decompressed as the colonoscope was completely removed from the patient. She was transferred to the Day Stay surgery area for postprocedure monitoring. There were no immediate complications. RECOMMENDATIONS: 1. High-fiber, low-fat diet. 2. Warm soaks or sitz baths t.i.d. p.r.n. hemorrhoids. 3. Repeat colonoscopy in 10 years for screening if clinically appropriate. 4. Follow up with Dr. Redmond in the next 1 to 2 months. 5. Follow up with Gastroenterology as needed. Job ID: [id number]
== END 2019-06-27 15:15 | disposition home or self-care (01) ==
LOC: SDC 11:35
PROVIDERS: ATTEND Internal Medicine Gastroenterology
PROC: 0DJD8ZZ Inspection of Lower Intestinal Tract, Via Natural or Artificial Opening Endoscopic (ICD-10-PCS; principal; 2019-06-27)
DX: K64.8 Other hemorrhoids (principal); K64.4 Residual hemorrhoidal skin tags; R15.9 Full incontinence of feces; J44.9 Chronic obstructive pulmonary disease, unspecified; F41.9 Anxiety disorder, unspecified; M19.90 Unspecified osteoarthritis, unspecified site; F31.9 Bipolar disorder, unspecified; G25.81 Restless legs syndrome; E07.9 Disorder of thyroid, unspecified; F17.200 Nicotine dependence, unspecified, uncomplicated; E66.9 Obesity, unspecified; Z68.43 Body mass index [BMI] 50.0-59.9, adult; Z79.899 Other long term (current) drug therapy; Z88.5 Allergy status to narcotic agent; Z88.8 Allergy status to other drugs, medicaments and biological substances; Z99.81 Dependence on supplemental oxygen
CPT/HCPCS: J2250; J7620

== ENCOUNTER 2019-08-14 10:07 | Outpatient (CLI) | payer MEDICARE ==
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
== END 2019-08-14 10:08 | disposition home or self-care (01) ==
LOC: BICULT 10:07
PROVIDERS: ATTEND Family Medicine
DX: N63.20 Unspecified lump in the left breast, unspecified quadrant (principal)

== ENCOUNTER 2019-11-28 09:58 | Outpatient (CLI) | payer MEDICARE ==
--- NOTE | 2019-11-28 10:55 | MMO ---
Left Breast MAMMO Unilat Diag DDI LT+ALEKSANDR. CLINICAL HISTORY: Patient is 69 years old and is seen for diagnostic exam. The patient has no family history of breast cancer. The patient has no personal history of cancer. The patient has a history of right Excisional Biopsy in YEARS AGO - benign. VIEWS: The views performed were: left craniocaudal with tomosynthesis; left mediolateral oblique with tomosynthesis; and left mediolateral with tomosynthesis. FILMS COMPARED: The present examination has been compared to prior imaging studies performed at [facility] on 05/09/2019, 08/14/2019 and 11/28/2019. This study has been interpreted with the assistance of computer-aided detection. MAMMOGRAM FINDINGS: There are scattered fibroglandular densities. Finding 1: There is a stable round mass with circumscribed margins seen in the left breast. This likely represents an area of fat necrosis. Finding 2: There are stable benign appearing calcifications seen in the left breast. There are no suspicious masses, suspicious calcifications, or new areas of architectural distortion. IMPRESSION: THERE IS NO MAMMOGRAPHIC EVIDENCE OF MALIGNANCY. A ROUTINE FOLLOW-UP MAMMOGRAM IN 1 YEAR IS RECOMMENDED. THE RESULTS OF THIS EXAM WERE SENT TO THE PATIENT. ACR BI-RADS Category 2 - Benign finding MAMMOGRAPHY NOTE: 1. A negative mammogram report should not delay a biopsy if a dominant of clinically suspicious mass is present. 2. Approximately 10% to 15% of breast cancers are not detected by mammography. 3. Adenosis and dense breasts may obscure an underlying neoplasm. Reported by: MYLENE TORRES MD Electonically Signed: [id number]
--- NOTE | 2019-11-28 12:06 | ULT ---
LEFT BREAST ULTRASOUND: Date: 11/28/2019 COMPARISON: Mammogram dated 11/28/2019, ultrasound dated 08/14/2019, and mammogram/ultrasound dated 05/09/2019. HISTORY: Mass seen in the left breast at the 3 o'clock position. This may represent fat necrosis. TECHNIQUE: Multiplanar Prabhakar scale and color Doppler images were obtained in a targeted ultrasound of the left br east. FINDINGS: In the 3 o'clock position of the left breast, there is a mixed solid/cystic lesion. The solid compone nt is hyperechoic. This is stable in size measuring 1.1 cm in greatest dimension and likely represent s an area of fat necrosis. No suspicious shadowing is seen. IMPRESSION: BI-RADS Category 2 - Benign findings. Annual screening mammography is recommended.
== END 2019-11-28 09:59 | disposition home or self-care (01) ==
LOC: BICMAMMO 09:58
PROVIDERS: ATTEND Family Medicine
DX: N63.20 Unspecified lump in the left breast, unspecified quadrant (principal)
CPT/HCPCS: 76642; 77065; G0279